=== PATIENT | female | born 1970 ===

== ENCOUNTER 2017-05-24 13:54 | Inpatient (IN) | payer OTHER ==
[~2017-05-24] VITALS: Ht 162.6 cm; Wt 62.1 kg
[2017-05-24 14:16] LABS: ABSOLUTE BASOPHIL COUNT 0 /CUMM (0.0-0.2); ABSOLUTE EOSINOPHIL COUNT 0.1 /CUMM (0.0-0.7); ABSOLUTE GRANULOCYTE CT 4.1 /CUMM (1.4-6.5); ABSOLUTE LYMPH COUNT 2.3 /CUMM (1.2-3.4); ABSOLUTE MONOCYTE COUNT 0.6 /CUMM (0.10-0.60); BASOPHIL % 0.4 % (0.0-2.0); EOSINOPHIL % 1.7 % (0-5); GRANULOCYTE % 57.5 % (42.2-75.2); HEMATOCRIT 36.2 % (37-47); MEAN CORPUSCULAR HGB 26.2 PG (27.0-31.0); MEAN CORPUSCULAR HGB CONC 32.9 G/DL (33.0-37.0); MEAN CORPUSCULAR VOLUME 79.6 FL (81.0-99.0); MEAN PLATELET VOLUME 7.8 FL (7.4-10.4); PLATELET COUNT 444 /CUMM (130-400); RBC DISTRIBUTION WIDTH 14.9 % (11.5-14.5); RED BLOOD CELL CT 4.55 /CUMM (4.20-5.40); WHITE BLOOD CELL COUNT 7.2 /CUMM (4.8-10.8)
[2017-05-24 14:20] LABS: PT 11.6 SEC (9.4-12.5)
--- NOTE | 2017-05-24 16:58 | ED CARDIAC/CP/PALPITATIONS ---
History of Present Illness General Chief Complaint: Chest Pain Stated Complaint: CP Source: patient Exam Limitations: no limitations Vital Signs & Intake/Output Vital Signs & Intake/Output Vital Signs Date Time Temp Pulse Resp B/P B/P Pulse O2 O2 Flow FiO2 Mean Ox Delivery Rate 05/24 2230 98.4 97 16 116/76 99 Room Air 05/24 1949 98.1 79 16 138/81 100 Room Air 05/24 1726 98.0 82 16 140/74 98 Room Air 05/24 1724 98 Room Air 05/24 1410 98.2 103 16 147/71 100 Room Air ED Intake and Output 05/25 0000 05/24 1200 Intake Total 0 Output Total Balance 0 Intake, Oral 0 Patient 137 lb Weight Weight Reported by Patient Measurement Method Allergies Coded Allergies: NO KNOWN ALLERGIES (07/07/10) Triage Note: PT STATS SHE BECAN HAVING LEFT SIDE CHEST PAIN LEFT SIDE THAT COMES AND GOES FROM THIS AM. NO INCREASE PAIN WITH MOVEMENT. PT DENIES SOB OR DIAPHORESIS. PT HAS NOT CARDIAC PROBLEMS. Triage Nurses Notes Reviewed? yes Onset: Gradual Duration: better, gone now, waxing and waning Timing: recent history Radiation: no radiation HPI: Patient is a 47-year-old female with a past medical history of hypothyroidism currently not medicated who presents emergency room stating that since 7 AM 10 hours ago patient has had waxing and waning left-sided chest wall pain that she has been asymptomatic for approximately 1 hour. Patient states the symptoms also occurred approximately 2 days ago that had completely resolved. Patient has associated symptoms of palpitations and mild shortness of breath during the onset of her chest pain. Denies any arm pain jaw pain fevers leg swelling hemoptysis cough diaphoresis nausea or vomiting. Denies any tobacco use alcohol or illicit drug use. Denies any recent travel or recent surgeries or history of PE or hemoptysis (Morgan Voss) Past History Travel History Traveled to [place] past 21 day No Medical History Any Pertinent Medical History? 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 No (Morgan Voss) Review of Systems Review of Systems Constitutional: Reports: see HPI. Denies: fever. EENTM: Reports: no symptoms. Respiratory: Reports: no symptoms. Cardiovascular: Reports: see HPI, chest pain. GI: Reports: see HPI. Genitourinary: Reports: no symptoms. Musculoskeletal: Reports: no symptoms. Skin: Reports: no symptoms. Neurological/Psychological: Reports: no symptoms. Hematologic/Endocrine: Reports: no symptoms. Immunologic/Allergic: Reports: no symptoms. All Other Systems: Reviewed and Negative (Morgan Voss) Physical Exam Physical Exam General Appearance: no apparent distress, alert Head: atraumatic Eyes: Bilateral: normal appearance. Ears, Nose, Throat: normal pharynx, normal ENT inspection Neck: normal inspection Respiratory: normal breath sounds, chest non-tender, no respiratory distress Cardiovascular: regular rate/rhythm Peripheral Pulses: 2+ radial (R) Gastrointestinal: normal bowel sounds, soft, non-tender Extremities: normal inspection, normal capillary refill, normal range of motion, no edema Neurologic/Psych: no motor/sensory deficits, awake, alert Skin: intact, normal color, warm/dry Lymphatic: no anterior cervical tiera Core Measures ACS in differential dx? Yes CVA/TIA Diagnosis No Sepsis Present: No Sepsis Focused Exam Completed? No (Morgan Voss) Progress Differential Diagnosis: AMI, aortic dissection, atrial fibrillation, cholecystitis, CHF/pulm edema, costochondritis, hyperkalemia, hypovolemia, hyperthyroid, hyperventilation, intracranial hemorrhage, musculoskeletal pain, myocarditis, pancreatitis, pericarditis, pneumonia, pneumothorax, PSVT, pulmonary embolism, PUD/GERD, PVCs/PACs, respiratory failure, sepsis, unstable angina, V-fib/V-Tach Plan of Care: Orders Procedure Date/time Status Heart Healthy Diet 05/25 B Active Patient Data 05/25 0002 Active ED Holding Orders 05/24 2113 Active Admit to inpatient 05/24 2114 Active Vital Signs 05/24 2114 Active Code Status 05/24 2114 Active TROPONIN LEVEL 05/24 1900 Complete EKG 05/24 1900 Active Add-on Test (ER Only) 05/24 1806 Active Add-on Test (ER Only) 05/24 1718 Active Add-on Test (ER Only) 05/24 1657 Active THYROID STIMULATING HORMONE 05/24 1408 Complete THYROXINE 05/24 1408 Complete HUMAN BETA HCG SCREEN 05/24 1408 Complete D-DIMER 05/24 1408 Complete TROPONIN LEVEL 05/24 1355 Complete PROTHROMBIN TIME 05/24 1355 Complete COMPREHENSIVE METABOLIC PANEL 05/24 1355 Complete CBC WITHOUT DIFFERENTIAL 05/24 135 Complete EKG 05/24 135 Active Laboratory Tests 05/24/17 1850: Troponin I < 0.01 05/24/17 1717: D-Dimer High Sensitivty Cancelled 05/24/17 1408: Anion Gap 14, Estimated GFR > 60, BUN/Creatinine Ratio 16.7, Glucose 125 H, Calcium 10.0, Total Bilirubin 0.5, AST 18, ALT 22, Alkaline Phosphatase 73, Troponin I < 0.01, Total Protein 8.5 H, Albumin 4.7, Globulin 3.8, Albumin/ Globulin Ratio 1.2, TSH 5.890 H, Thyroxine (T4) 9.0, Total Beta HCG NEGATIVE, PT 11.6, INR 1.06, D-Dimer High Sensitivty < 200, CBC w Diff NO MAN DIFF REQ, RBC 4.55, MCV 79.6 L, MCH 26.2 L, MCHC 32.9 L, RDW 14.9 H, MPV 7.8, Gran % 57.5, Lymphocytes % 32.0, Monocytes % 8.4, Eosinophils % 1.7, Basophils % 0.4, Absolute Granulocytes 4.1, Absolute Lymphocytes 2.3, Absolute Monocytes 0.6, Absolute Eosinophils 0.1, Absolute Basophils 0 Patient had initial examination is resting comfortably at bedside and denies any chest pain. equipment monitor phototypesetting placed patient will receive second set cardiac enzymes patient has had no chest pain while in the emergency room, d-dimer is negative for pulmonary embolism first set ekg and troponin were unremarkable Patient return from chest x-ray and had exacerbation of "light" left-sided chest pain. Patient will be given nitroglycerin discussed handoff with dr mcgoawn Initial ED EKG: normal intervals, normal p-waves, normal QRS complex, 93 BPM,NSR Hand-Off Endorsed To: Moe Mcgowan DO Endorsed Time: 2001 Pending: other (Senait COLIN,Moragn) Departure Departure Disposition: STILL A PATIENT Condition: Stable Clinical Impression Primary Impression: Chest pain Referrals: Tatum Oliver APRN (PCP/Family) Additional Instructions: As discussed if symptoms worsen or if you develop new concerning symptom return to emergency room, tomorrow please follow up with milieu technician Dr. Olivares for further evaluation treatment. Departure Forms: Customer Survey General Discharge Information (Morgan Voss) Admission Note Spoke With: Landry Hayes MD Documentation of Exam: Documentation of any treatments & extenuating circumstances including Concerns Regarding Discharge (functional status, medication knowledge or non-compliance, living conditions, etc.) that warrant an admission rather than observation: [The patient needs admission for serial troponins, cardiology consultation, inpatient echocardiogram. I spoke with Dr. Kruger who agrees with the plan of care and will consult as needed] (Moe Mcgowan DO) Critical Care Note Critical Care Note Critical Care Time: 30-74 min (Morgan Voss)
--- NOTE | 2017-05-24 20:16 | RADIOLOGY REPORT ---
EXAMINATION: XR CHEST CLINICAL INFORMATION: Chest pain. COMPARISON: Chest x-ray dated 03/21/2007. TECHNIQUE: 2 views of the chest were obtained. FINDINGS: No airspace opacities or pleural effusions are seen. The cardiomediastinal silhouette is normal. No acute osseous abnormality is seen. IMPRESSION: Clear lungs. No acute process.
--- NOTE | 2017-05-24 23:31 | History & Physical ---
Jasiel AMBRIZ,[facility] 05/24/17 2250: General Information and HPI MD Statement: I have seen and personally examined REY TERRELL and documented this H&P. The patient is a 47 year old F who presented with a patient stated chief complaint of [chest pain]. Source of Information: patient Exam Limitations: no limitations History of Present Illness: 47 yo F with PMH of anemia, hyperlipidemia, menorrhagia, hypothyroidism (not on meds) presented to the ED for evaluation of chest pain. According to the patient she has been experiencing intermittent episodes of chest pain since around 8am earlier today. The episodes last for a few minutes, around 5/10 in severity, non radiating, aggravated with deep breaths and movements during episodes, no relieving factors and associated with palpitations and mild shortness of breath. She does feels anxious during and after the episodes. She denies any recent illness or family history of heart disease. She has a history of hypothyroidism but was taken off medications years ago by her PCP. 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 EENTM: Reports: no symptoms. Cardiovascular: Reports: chest pain, palpitations. Respiratory: Reports: short of breath. GI: Reports: no symptoms. Genitourinary: Reports: no symptoms. Musculoskeletal: Reports: no symptoms. Skin: Reports: no symptoms. Neurological/Psychological: Reports: no symptoms. Exam & Diagnostic Data Last 24 Hrs of Vital Signs/I&O Vital Signs Date Time Temp Pulse Resp B/P B/P Pulse O2 O2 Flow FiO2 Mean Ox Delivery Rate 05/24 2229 98.4 97 16 116/76 99 Room Air 05/24 1948 98.1 79 16 138/81 100 Room Air 05/24 1726 98.0 82 16 140/74 98 Room Air 05/24 1724 98 Room Air 05/24 1410 98.2 103 16 147/71 100 Room Air Intake & Output 05/25 0800 05/25 0000 05/24 1600 Intake Total 0 Output Total Balance 0 Intake, Oral 0 Patient 137 lb Weight Weight Reported by Patient Measurement Method Physical Exam General Appearance Alert, Oriented X3, Cooperative, No Acute Distress Skin No Rashes, No Breakdown Skin Temp/Moisture Exam: Warm/Dry Sepsis Skin Exam (color): Normal for Ethnicity Cardiovascular Normal S1, Normal S2, No Murmurs Lungs Clear to Auscultation, Normal Air Movement Abdomen Soft, No Tenderness Neurological Normal Speech Extremities No Edema Diagnostic Data EKG Results NSR, rate 93, QTc 453, narrow QRS, no pathological Q waves, no ST segment changes. Assessment/Plan Assessment: 47 yo F with PMH of anemia, hyperlipidemia, menorrhagia, hypothyroidism (not on meds) presented to the ED for evaluation of chest pain. Assessment: 1. Chest Pain 2. Anemia 3. Hx of hypothyroidism not on thyroxine Plan: * Admit to telemetry floor. * Rule out ACS with 3 sets of negative troponins and EKG * Cardiology consult in am * Echocardiogram if needed. * Repeat fingerstick glucose in am as her glucose on admisison was slightly elevated. * Start ferrous sulphate for iron deficiency anemia likely secondary to menorrhagia * Check T3. She likely has subclinical hypothyroidism * Continue statin * Diet: Regular * DVT Prophylaxis: SC Lovenox * Code: Full Code As Ranked By This Provider Problem List: 1. Chest pain Core Measures/Misc (10/31) Acute Coronary Syndrome ACS Diagnosis: No Congestive Heart Failure Congestive Heart Failure Diagnosis No Cerebrovascular Accident CVA/TIA Diagnosis: No VTE (View Protocol) VTE Risk Factors Age>40 No Mechanical VTE Prophylaxis d/t N/A MechProphylax Ordered No VTE Pharm Prophylaxis d/t NA PharmProphylax ordered Sepsis (View protocol) Sepsis Present: No Floresita AMBRIZ,[facility] 05/25/17 0055: Resident Review Statement Resident Statement: examined this patient, discussed with paralegal internship, agreed with paralegal internship, discussed with family Other Findings: 47-year-old female with PMH of HLD, chronic anemia 2/2 menorrhagia, and hypothyroidism who presented with a chief complaint of intermittent, 5/10, nonradiating, stabbing left-sided chest pain that started earlier today around 8 AM and lasted for 2 minutes and happened frequently thereafter. The patient reported similar episodes in the past. Her pain worsened with deep breath and movement and she did not try anything to relieve. Her pain is associated with palpitation and mild shortness breath. She reported feeling anxious during the episodes. She denies recent sickness, smoking, sick contact, recent travel, alcohol use, or illicit drug use. No family history of cardiac diseases. Vitals and physical exam on admission: Temperature 98, blood pressure 140/70 improved to 116/70 without intervention, heart rate 103 improved to 79 and saturating 99 on room air. Physical Exam Including HEENT, CVS, Resp, LE were all within normal limits and without any significant abnormalities. Labs and imaging on admission: WBCs of 7, platelets 444, H&H 11.9 and 36. Sodium , potassium, chloride, renal function test, calcium, liver function test were within normal limits. TSH mildly elevated with normal T4. Random glucose 126. Chest x-ray revealed benign findings Assessment: ACS is unlikely given the quality of pain, however we will rule out ACS with serial EKG and troponin. Given pain associated palpitation and dyspnea arrhythmia will be ruled out my monitoring telemetry. Anxiety is also possible. Given history of hypothyroidism, levothyroxine was stopped long ago as per PCP, because of elevated TSH and normal T4 we will check total T3. Random glucose was mildly elevated we will start patient on finger glucose check. For hyperlipidemia we will continue statin. Problem list: * Chest pain most likely related to an anxiety if ACS and arrhythmia were ruled out * HLD * Elevated random glucose level * Microcystic anemia secondary to menorrhagia * Hx of hypothyroidism currently not on levothyroxin Plan * Monitor in telemetry floor to rule out ACS and arrhythmias * Continue home dose of statin * Cardio consult in the morning * Echocardiogram if requested by occ ther. * Glucose fingerstick check * We will start iron for microcytic anemia * We will check total T3 -Heart healthy diet -DVT PPX with Lovenox -Full code -Tele -trop/ekg -cardio -cont' statin -TT3 check Landry Hayes 05/25/17 0729: Attending Review Statement Attending Statement Attending MD Statement: examined this patient, discuss w/resident/PA/DISTRICT COURT ADMINISTRATOR, agreed w/resident/PA/DISTRICT COURT ADMINISTRATOR, reviewed EMR data (avail), reviewed images, amended to note Attending Assessment/Plan: CC: Chest pain PMH: HLD Patient came to ER for left-sided chest pain that started this morning, intermittent lasting for a few minutes, 4/10 in intensity, nonradiating, not associated with exertion, not relieved by rest. After a few episodes of chest pain patient became very anxious and she started to notice palpitations and shortness of breath. She states that she gets this pain on and off but noticed that it increased in frequency today. She denies any pleuritic chest pain, chest tightness, cough, expectoration, fever, chills, trauma, presyncope or falls. Vitals: Afebrile, pulse 82, RR 16, blood pressure 140/74, saturating 98% on room air. On exam: A O 3, cooperative, no acute distress, neck supple, JVD normal, no lymphadenopathy, mucosa moist, no focal neurological deficit, no dependent edema , no obvious skin rashes or inflammation CVS: S1-S2, RRR, pain is not reproducible. RS: Clear to auscultate bilaterally. Abdomen: Soft, NT, ND, bowel sounds present. Chest x-ray: Clear lungs. No acute process. Assessment and plan 47 year old female with not many comorbidities resented in ER for her typical left-sided chest pain, examination unremarkable, no ECG changes, troponin negative. Cardiology was called from ER who suggested to admit her to telemetry to rule out acute coronary syndrome. + Chest pain rule out ACS - Admit to telemetry - Continuous telemetry monitoring - Serial troponin and EKGs - 2-D echo in a.m. if significant increase in troponin or if suggested by cardiology - Cardiology consult in a.m. - Continue aspirin, statin, - Check lipid profile
[2017-05-25] MEDS ORDERED: LOVASTATIN20 M1 PO (00:55)
[2017-05-25 06:02] VITALS: BP 119/74
--- NOTE | 2017-05-25 07:30 | Admission Certification ---
Admission Certification Certification Statement - As attending physician, I certify that at the time of - admission, based on clinical presentation, severity of - symptoms, need for further diagnostic testing and - therapeutic interventions, and risk of adverse outcomes - without in-hospital treatment, in my clinical assessment, - this patient requires an acute hospital stay for a minimum - of two nights or longer. I have also considered psychsocial - factors such as support system, advanced age, financial - issues, cognitive issues, and failed out-patient treatments, - past re-admission history, safety of patient, and lack of - compliance as applicable. Specific rationale supporting this admission is: Chest pain rule out ACS
[2017-05-25 08:16] VITALS: BP 104/69
--- NOTE | 2017-05-25 10:27 | PN- Housestaff ---
Tatianna Hernández MD 05/25/17 1026: Subjective Follow-up For: 1. Chest Pain 2. Anemia 3. Hx of hypothyroidism not on thyroxine Complaints: no complaints Tele-Events Since Last Visit: no events, nsr Subjective: patient notes no chest pain at time of interview Review of Systems Constitutional: Reports: no symptoms. EENTM: Reports: no symptoms. Cardiovascular: Reports: no symptoms. Respiratory: Reports: no symptoms. Gastrointestinal: Reports: no symptoms. Genitourinary: Reports: no symptoms. Musculoskeletal: Reports: no symptoms. Objective Last 24 Hrs of Vital Signs/I&O Vital Signs Date Time Temp Pulse Resp B/P B/P Pulse O2 O2 Flow FiO2 Mean Ox Delivery Rate 05/25 1530 97.9 80 18 108/70 99 Room Air 05/25 1400 97.3 83 18 106/66 98 Room Air 05/25 1128 98.2 82 18 120/70 99 Room Air 05/25 0816 98.2 84 18 104/69 99 Room Air 05/25 0809 99 Room Air 05/25 0753 98.2 84 16 104/69 99 Room Air 05/25 0602 97.4 82 18 119/74 100 Room Air 05/25 0542 97.4 82 18 119/74 100 Room Air 05/24 2230 98.4 97 16 116/76 99 Room Air 05/24 1949 98.1 79 16 138/81 100 Room Air Intake & Output 05/25 1600 05/25 0800 05/25 0000 Intake Total 0 Output Total Balance 0 Intake, Oral 0 Patient 137 lb Weight Weight Reported by Patient Measurement Method Physical Exam General Appearance: Alert, Oriented X3, Cooperative, No Acute Distress Skin: No Rashes, No Breakdown, No Significant Lesion Skin Temp/Moisture Exam: Warm/Dry Sepsis Skin Exam (color): Normal for Ethnicity HEENT: Atraumatic, PERRLA, EOMI, Mucous Membr. moist/pink Cardiovascular: Regular Rate, Normal S1, Normal S2, No Murmurs Lungs: Clear to Auscultation, Normal Air Movement Abdomen: Normal Bowel Sounds, Soft, No Tenderness, No Hepatospenomegaly, No Masses Neurological: Normal Speech Extremities: No Clubbing, No Cyanosis, No Edema, Normal Pulses Vascular: Normal Pulses, Pulses Symmetrical Current Medications: Current Medications Sig/Hong Start time Last Medication Dose Route Stop Time Status Admin Atorvastatin Calcium 80 MG 1700 04/11 1700 AC PO Enoxaparin Sodium 40 MG DAILY 05/25 1000 AC SC Ferrous Sulfate 325 MG DAILY 05/25 1000 AC 05/25 PO 0951 Nitroglycerin 0 .STK-MED ONE 05/24 2008 DC SL Nitroglycerin 0.4 MG ONCE ONE 05/25 1999 DC SL 05/24 2000 Last 24 Hrs of Lab/Luisito Results Last 24 Hrs of Labs/Mics: Laboratory Tests 05/25/17 0948: Iron Cancelled, TIBC Cancelled, Ferritin Cancelled 05/25/17 0300: Iron 34 L, TIBC 440, Ferritin 5.8 L, Troponin I < 0.01 Assessment/Plan Assessment: 47-year-old female with PMH of HLD, chronic anemia 2/2 menorrhagia, and hypothyroidism who presented with a chief complaint of intermittent, 5/10, nonradiating, stabbing left-sided chest pain that started earlier today around 8 AM and lasted for 2 minutes and happened frequently thereafter. The patient reported similar episodes in the past. Her pain worsened with deep breath and movement and she did not try anything to relieve. Her pain is associated with palpitation and mild shortness breath. She reported feeling anxious during the episodes. She denies recent sickness, smoking, sick contact, recent travel, alcohol use, or illicit drug use. No family history of cardiac diseases. Vitals and physical exam on admission: Temperature 98, blood pressure 140/70 improved to 116/70 without intervention, heart rate 103 improved to 79 and saturating 99 on room air. Physical Exam Including HEENT, CVS, Resp, LE were all within normal limits and without any significant abnormalities. Labs and imaging on admission: WBCs of 7, platelets 444, H&H 11.9 and 36. Sodium , potassium, chloride, renal function test, calcium, liver function test were within normal limits. TSH mildly elevated with normal T4. Random glucose 126. Chest x-ray revealed benign findings Assessment: ACS is unlikely given the quality of pain and the fact that she has had this pain since she was young on and off, however we will rule out ACS with serial EKG and troponin. Given pain associated palpitation and dyspnea arrhythmia will be ruled out my monitoring telemetry. Anxiety is also possible. Given history of hypothyroidism, levothyroxine was stopped long ago as per PCP, because of elevated TSH and normal T4 we will check total T3. Random glucose was mildly elevated we will start patient on finger glucose check. For hyperlipidemia we will continue statin. Problem list: * Chest pain most likely related to an anxiety if ACS and arrhythmia were ruled out * menorrhagia * Hx of hypothyroidism currently not on levothyroxin Plan * trop and ekg x3 negative * Continue home dose of statin * Cardio consult suggested following up outpatient for stress test. patient has no obvious major cardiac risk factors other than HLD. * Glucose fingerstick checks, normal * We will start iron for microcytic anemia low iron and ferritin, which she was instructed to take outpatient but stopped on her own. stressed to continue. * t3 and t4 normal. tsh mildly elevated. -Heart healthy diet -DVT PPX with Lovenox -Full code Problem List: 1. Chest pain Pain Ratin Pain Location: na Pain Goal: Remain pain free Pain Plan: na Tomorrow's Labs & Rationales: Ruddy Galvin 05/25/17 1336: Attending MD Review Statement Attending Statement Attending MD Statement: examined this patient, discuss w/resident/PA/TANKERMAN, agreed w/resident/PA/TANKERMAN, discussed with family, reviewed EMR data (avail), discussed with nursing, discussed with case mgmt, reviewed images, amended to note Attending Assessment/Plan: 47 o/f with atypical chest pain in low risk patient. Patient serial cardiac enzymes negative for MA. Cardiology cosnulted and recommned outpatient ischemic work up. Patient stable for discharge. Follow up with PCP in 2 weeks of dc.
--- NOTE | 2017-05-25 11:23 | Discharge Summary ---
Visit Information Visit Dates Admission Date: 05/24/17 Discharge Date: 05/25/2017 Hospital Course Course Attending Physician: Landry Hayes MD Allergies: Coded Allergies: NO KNOWN ALLERGIES (07/07/10)
--- NOTE | 2017-05-25 11:23 | Cons- Cardiology ---
General Information and HPI Consulting Request Date of Consult: 05/25/17 Requested By: Landry Hayes MD Reason for Consult: Chest pain Source of Information: patient History of Present Illness: This is a pleasant 47-year-old female with a past medical history of hyperlipidemia who presented to [facility] with a chief complaint of intermittent chest pain which occurred at rest; left-sided with no obvious exacerbating or alleviating factors and no exertional component; denied associated shortness of breath, nausea, or diaphoresis. She is quite active with no exertional symptoms at baseline. The chest discomfort has now resolved. Denied any radiation. Denied headache, slurring of speech, focal weakness, orthopnea, or paroxysmal nocturnal dyspnea. Allergies/Medications Allergies: Coded Allergies: NO KNOWN ALLERGIES (07/07/10) Home Med List: Lovastatin 20 MG TABLET 0.5 TAB PO DAILY HLD (Reported) Current Medications: Current Medications Sig/Hong Start time Last Medication Dose Route Stop Time Status Admin Atorvastatin Calcium 80 MG 1700 05/25 1700 AC PO Enoxaparin Sodium 40 MG DAILY 05/25 1000 AC SC Ferrous Sulfate 325 MG DAILY 05/25 1000 AC 05/25 PO 0951 Nitroglycerin 0 .STK-MED ONE 05/24 2008 DC SL Nitroglycerin 0.4 MG ONCE ONE 05/25 1999 DC SL 05/24 2000 Review of Systems Review of Systems: Review of systems as per HPI. The remainder of a 10 point review of systems was reviewed and was otherwise negative. Past History Travel History Traveled to [place] past 21 day No Medical History Blood Transfusion Hx: No Neurological: NONE EENT: NONE Cardiovascular: hyperlipidemia Respiratory: NONE Gastrointestinal: NONE Hepatic: NONE Renal: NONE Musculoskeletal: NONE Psychiatric: NONE Endocrine: NONE Blood Disorders: anemia Cancer(s): NONE CLASSIFIED AD TAKER/Reproductive: [place] Surgical History Surgical History: non-contributory Psychosocial History Where Do You Live? Home Services at Home: None Smoking Status: Never Smoked ETOH Use: denies use Illicit Drug Use: denies illicit drug use Exam & Diagnostic Data Vital Signs and I&O Vital Signs Date Time Temp Pulse Resp B/P B/P Pulse O2 O2 Flow FiO2 Mean Ox Delivery Rate 05/25 0816 98.2 84 18 104/69 99 Room Air 05/25 0809 99 Room Air 05/25 0753 98.2 84 16 104/69 99 Room Air 05/25 0602 97.4 82 18 119/74 100 Room Air 05/25 0542 97.4 82 18 119/74 100 Room Air 05/24 2230 98.4 97 16 116/76 99 Room Air 05/24 1949 98.1 79 16 138/81 100 Room Air 05/24 1726 98.0 82 16 140/74 98 Room Air 05/24 1724 98 Room Air 05/24 1410 98.2 103 16 147/71 100 Room Air Intake & Output 05/25 1600 05/25 0805/25 0000 05/24 1600 05/24 0000 Intake Total 0 Output Total Balance 0 Intake, Oral 0 Patient 137 lb 137 lb Weight Weight Reported by Patient Reported by Patient Measurement Method Physical Exam: General: no apparent distress. Alert. Eyes: No obvious scleral icterus. HEENT: No jugular venous distention or abnormal jugular venous pulsations. Cardiovascular: Normal intensity S1/S2. PMI not grossly displaced. Respiratory: Lungs clear to auscultation bilaterally. Abdomen: Soft, nontender with no guarding or rebound tenderness. Musculoskeletal: No clubbing or cyanosis noted Skin: No obvious rashes or ulcerations. Neurologic: No gross focal deficits noted. Lymph: No gross lymphadenopathy. Labs/Luisito Results: Laboratory Tests 05/25 05/25 05/24 05/24 0948 0300 1850 1717 Chemistry Iron (37 - 170 ug/dL) Cancelled 34 L TIBC (265 - 497 ug/dL) Cancelled 440 Ferritin (6.24 - 137 ng/mL) Cancelled 5.8 L Troponin I (< 0.11 ng/ml) < 0.01 < 0.01 Coagulation D-Dimer High Sensitivty Cancelled 05/24 1408 Chemistry Sodium (137 - 145 mmol/L) 140 Potassium (3.5 - 5.1 mmol/L) 3.6 Chloride (98 - 107 mmol/L) 100 Carbon Dioxide (22 - 30 mmol/L) 27 Anion Gap (5 - 16) 14 BUN (7 - 17 mg/dL) 10 Creatinine (0.5 - 1.0 mg/dL) 0.6 Estimated GFR (>60 ml/min) > 60 BUN/Creatinine Ratio (7 - 25 %) 16.7 Glucose (65 - 99 mg/dL) 125 H Calcium (8.4 - 10.2 mg/dL) 10.0 Total Bilirubin (0.2 - 1.3 mg/dL) 0.5 AST (14 - 36 U/L) 18 ALT (9 - 52 U/L) 22 Alkaline Phosphatase (<127 U/L) 73 Troponin I (< 0.11 ng/ml) < 0.01 Total Protein (6.3 - 8.2 g/dL) 8.5 H Albumin (3.5 - 5.0 g/dL) 4.7 Globulin (1.9 - 4.2 gm/dL) 3.8 Albumin/Globulin Ratio (1.1 - 2.2 %) 1.2 TSH (0.270 - 4.200 uIU/mL) 5.890 H Thyroxine (T4) (4.5 - 10.9 ug/dL) 9.0 Total T3 (0.97 - 1.69 ng/mL) 1.26 Total Beta HCG (NEGATIVE) NEGATIVE Coagulation PT (9.4 - 12.5 SEC) 11.6 INR (0.90 - 1.19) 1.06 D-Dimer High Sensitivty (0 - 243 ng/ml) < 200 Hematology CBC w Diff NO MAN DIFF REQ WBC (4.8 - 10.8 /CUMM) 7.2 RBC (4.20 - 5.40 /CUMM) 4.55 Hgb (12.0 - 16.0 G/DL) 11.9 L Hct (37 - 47 %) 36.2 L MCV (81.0 - 99.0 FL) 79.6 L MCH (27.0 - 31.0 PG) 26.2 L MCHC (33.0 - 37.0 G/DL) 32.9 L RDW (11.5 - 14.5 %) 14.9 H Plt Count (130 - 400 /CUMM) 444 H MPV (7.4 - 10.4 FL) 7.8 Gran % (42.2 - 75.2 %) 57.5 Lymphocytes % (20.5 - 51.1 %) 32.0 Monocytes % (1.7 - 9.3 %) 8.4 Eosinophils % (0 - 5 %) 1.7 Basophils % (0.0 - 2.0 %) 0.4 Absolute Granulocytes (1.4 - 6.5 /CUMM) 4.1 Absolute Lymphocytes (1.2 - 3.4 /CUMM) 2.3 Absolute Monocytes (0.10 - 0.60 /CUMM) 0.6 Absolute Eosinophils (0.0 - 0.7 /CUMM) 0.1 Absolute Basophils (0.0 - 0.2 /CUMM) 0 Diagnostic Data EKG Results Tracing was personally reviewed and shows a sinus rhythm at [address] elevations or ST depressions CXR Results Clear lungs. No acute process. Assessment/Plan Assessment/Plan 1. Atypical chest discomfort now resolved 2. History of hyperlipidemia on statin therapy The patient's nonexertional chest discomfort has now resolved. No obvious ischemic changes on ECG. Serial troponins are negative. She does not smoke. Other than hyperlipidemia has no obvious major cardiac risk factors. Pretest probability for obstructive coronary artery disease is low and additional evaluation can be done as an outpatient. She will follow-up with me after discharge and is instructed to return to the ER via 911 with any new or recurrent symptoms. Continue on her outpatient daily statin therapy. Marc Soto MD [facility] Consult Acknowledgment - Thank you for your consult request.
[2017-05-25] MEDS ORDERED: FERROUS SULFAT325 M3 PO (11:25)
--- NOTE | 2017-05-25 11:26 | Patient Discharge Instructions ---
Discharge Instructions General Discharge Information You were seen/treated for: chest pain Special Instructions: 1. please follow up with your pcp in one week 2. 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 Please return to ED via ambulance if your chest pain returns Diet Continue normal diet: Yes Activity Full Activity/No Limits: Yes Acute Coronary Syndrome Inclusion Criteria At DC or during hospital stay patient has or had the following: ACS DIAGNOSIS No Discharge Core Measures Meds if any: Prescribed or Continued at Discharge Meds if any: NOT Prescribed or Continued at Discharge Congestive Heart Failure Inclusion Criteria At DC or during hospital stay patient has or had the following: CHF DIAGNOSIS No Discharge Core Measures Meds if any: Prescribed or Continued at Discharge Meds if any: NOT Prescribed or Continued at Discharge Cerebrovascular accident Inclusion Criteria At DC or during hospital stay patient has or had the following: CVA/TIA Diagnosis No Discharge Core Measures Meds if any: Prescribed or Continued at Discharge Meds if any: NOT Prescribed or Continued at Discharge Venous thromboembolism Inclusion Criteria VTE Diagnosis No VTE Type NONE VTE Confirmed by (Test) NONE Discharge Core Measures - Per Current guidelines, there needs to be overlap - treatment for the first 5 days of Warfarin therapy. - If discharged on Warfarin prior to 5 days of - overlap therapy, the patient will need to be - assessed for post discharge needs including - *Post discharge parental anticoagulation - *Warfarin and/or parental anticoagulation education - *Follow up date to check INR post discharge At least 5 days overlap therapy as Inpatient No Meds if any: Prescribed or Continued at Discharge Note: Overlap Therapy is Warfarin and Anticoagulant Meds if any: NOT Prescribed or Continued at Discharge
[2017-05-25] MEDS ORDERED: FERROUS SULFAT325 M2 PO ×2 (12:49→13:07)
[2017-05-25 15:30] VITALS: BP 108/70
== END 2017-05-25 15:31 | DRG 203 ==
LOC: ERH 13:54 → ERHI 21:14
PROVIDERS: Physician Assistant Medical
DX: R07.89 Other chest pain (principal); N92.0 Excessive and frequent menstruation with regular cycle; D64.9 Anemia, unspecified; E03.9 Hypothyroidism, unspecified; E78.5 Hyperlipidemia, unspecified
CPT/HCPCS: ERO; 71046; 93005; 93010; J1650; J3490